=== PATIENT | male | born 1990 | race Caucasian/White ===

== ENCOUNTER 2023-06-10 15:16 | Emergency (ER) | payer BC, SELFPAY ==
--- NOTE | ~2023-06-10 | XR_ITS ---
EXAM: XR lumbar spine 2-3V DATE: 06/10/2023 16:06 HISTORY: mid low back pain after household move 1.5 wks ago . COMPARISON: None available. FINDINGS: 5 nonrib-bearing lumbar-type vertebral bodies. Pedicles intact. Normal vertebral body alig nment. Vertebral body heights preserved. Mild disc space narrowing at L3-4. Normal facets and posteri or elements. No fracture or dislocation. IMPRESSION: No acute fracture or traumatic malalignment detected in the lumbar spine. Reviewed, dictated and finalized at location K.
[2023-06-10 15:19] VITALS: BP 140/98; PULSE 81; RESP 18; TEMP 37.1; O2SAT 99
[2023-06-10] MEDS: LIDOCAINE 5% PATCH 1 PATCH TRANSDERM (16:07)
--- NOTE | 2023-06-10 16:36 | ED.BACK ---
HPI - Back Pain/Injury General Chief Complaint: Back Pain/Injury Stated Complaint: back pain Time Seen by Provider: 06/10/23 15:36 Source: patient and RN notes reviewed Mode of arrival: ambulatory Limitations: no limitations History of Present Illness HPI Narrative: This is a 32 year old male with history of scoliosis who presents for evaluation of low back pain. Patient states 2 days ago he developed low back pain while moving furniture in his apartment. He states his back pain has worsened over the past 2 days. he has taken ibuprofen and tylenol for his pain. He reports pain is worse with movement it is was painful to ride in car. he feels like pain radiates into his hip. He denies leg weakness, numbness tingling or urinary complaint Related Data Allergies Allergy/AdvReac Type Severity Reaction Status Date / Time Iodine and Iodide Containing Allergy Seizure Verified 08/24/19 22:01 Produc ketorolac [From Toradol] Allergy Rash Verified 08/24/19 22:01 Review of Systems Review of Systems: All systems reviewed & are unremarkable except as noted in HPI and below PMFSH Past Medical History Medical History (Updated 06/10/23 @ 17:06 by Fani Hooks MD) No active medical problems Surgical History Surgical History H/O hand surgery Family History Family History Mother Diabetes mellitus Social History Social History Smoking status: Light tobacco smoker Tobacco type: cigarettes Alcohol use details: Says he drinks rarely Substance use type: marijuana Gender identity (if verbalized by the patient): Male Exam Const: General: no acute distress and alert Nutritional Appearance: well nourished Eyes: EOM: EOMs intact bilaterally Resp: Effort & Inspection: normal respiratory effort GI: GI Palp: Yes Soft to palpation (nontender) : General: Yes no CVA tenderness Back/Spine/Pelvis: Back: no CVA tenderness Thoracic/Lumbar Spine: paraspinal muscle tenderness Skin: General skin exam: normal color Rashes: no rashes Wounds: no wounds Neuro: General: patient oriented x3, moves all extremities and CN's II-XI intact bilaterally Extrem: General: normal to inspection Psych: Mental Status: mental status grossly normal Affect: normal affect Attitude: cooperative Course Vital Signs Vital signs: Vital Signs Temperature 98.8 F 06/10/23 15:19 Pulse Rate 81 06/10/23 15:19 Respiratory Rate 18 06/10/23 15:19 Blood Pressure 140/98 H 06/10/23 15:19 Pulse Oximetry 99 06/10/23 15:19 Oxygen Delivery Room Air 06/10/23 15:19 Temperature 98.8 F 06/10/23 15:19 Pulse Rate 81 06/10/23 15:19 Respiratory Rate 18 06/10/23 15:19 Blood Pressure 140/98 H 06/10/23 15:19 Pulse Oximetry 99 06/10/23 15:19 Oxygen Delivery Room Air 06/10/23 15:19 MDM - Back Pain/Injury MDM Narrative Medical decision making narrative: Patient presents with low back pain with lifting furniture. he has not neurological symptoms. no urinary complaints. Patient concerned with fracture . lumbar xray ordered and did not show fracture. I discussed with patient that he will treat with NSaIDS, muscle relaxers and he was given lidocaine patch. Follow up with PCP Differential Diagnosis Differential diagnosis: Likely lumbar radiculopathy, sciatica, strain of lumbar region and other (fracture) Imaging Data Radiologist's impression: ITS Impressions Lumbar Spine X-Ray 06/10/23 16:45 IMPRESSION: No acute fracture or traumatic malalignment detected in the lumbar spine. Discharge Plan Discharge Clinical Impression: Strain of lumbar region Patient Disposition: Home, Self-Care Condition: Stable Instructions: Antibiotic Form, Acute Low Back Pain (ED), Back Pain (ED) Additional Instructions: Con
== END 2023-06-10 17:20 | disposition home or self-care (01) ==
PROVIDERS: Emergency Provider General Practice
DX: S39.012A Strain of muscle, fascia and tendon of lower back, initial encounter (principal); F17.210 Nicotine dependence, cigarettes, uncomplicated; X50.0XXA Overexertion from strenuous movement or load, initial encounter
CPT/HCPCS: 72100; 99283; A9270

== ENCOUNTER 2023-07-22 15:05 | Emergency (ER) | payer BC, SELFPAY ==
--- NOTE | ~2023-07-22 | XR_ITS ---
EXAMINATION: XR chest 1V portable Exam Date/Time: 07/22/2023 15:30 CDT HISTORY: mid-left sided cp, increased HR today w/ chronic cough Comparison: None. RESULT: Lines, tubes, and devices: None. Lungs and pleura: Clear. Cardiomediastinal silhouette: Stable. Other: No acute osseous or upper abdominal finding. IMPRESSION: No acute cardiopulmonary process. Reviewed, dictated and finalized at location K.
[2023-07-22 15:15] VITALS: O2SAT 97
--- NOTE | 2023-07-22 15:15 | ECG_ITS ---
Measurements Intervals [place] Rate: 87 P: 67 ME: 152 QRS: 45 QRSD: 82 T: 55 QT: 335 QTc: 404 Interpretive Statements SINUS RHYTHM NORMAL ELECTROCARDIOGRAM Electronically Signed On 07-24-2023 7:11:01 CDT by Mono Prabhakar M.D.
[2023-07-22 15:20] VITALS: PULSE 88
--- NOTE | 2023-07-22 15:40 | ED.CHESTPAIN ---
HPI - Chest Pain General Chief Complaint: Chest Pain Stated Complaint: chest pain Time Seen by Provider: 07/22/23 15:15 Source: patient Mode of arrival: ambulatory Limitations: no limitations History of Present Illness HPI narrative: 32-year-old male smoker with a history of hypertension, palpitation on metoprolol and hydrochlorothiazide presents to the ER with a 1-1/2 hour history of -- left-sided chest pain which radiates to the entire left chest wall. Patient was resting when the pain hit him. Pain was initially noted to be 5/10. Pain is spontaneously decreased to 1/10. No nausea or vomiting. No shortness of breath. No lightheadedness. MD complaint: chest pain Onset (ago): hour(s) ( Started 1-1/2 hours ago) Timing of current episode: constant Prior episodes: No Onset: during rest Pain location: left chest Pain scale (0-10): 5 Quality: aching Relieving factors: nothing Exacerbating factors: nothing Treatment prior to arrival: none Related Data Home Medications Medication Instructions Recorded Confirmed Unable to Obtain Home Medications 07/22/23 07/22/23 Allergies Allergy/AdvReac Type Severity Reaction Status Date / Time Iodine and Iodide Containing Allergy Seizure Verified 07/22/23 15:18 Produc ketorolac [From Toradol] Allergy Rash Verified 07/22/23 15:18 Review of Systems Review of Systems: All systems reviewed & are unremarkable except as noted in HPI and below Constitutional: Constitutional: Reports as per HPI and Reports no additional constitutional complaints Eyes: Eyes: Reports as per HPI and Reports no additional eye complaints ENT: Reports system reviewed and no additional complaints, except as documented and Reports as per HPI Cardiovascular: Cardiovascular: Reports as per HPI, Reports no additional cardiovascular complaints and Reports chest pain Respiratory: Respiratory: Reports as per HPI and Reports no additional respiratory complaints Gastrointestinal: Gastrointestinal: Reports as per HPI and Reports no additional gastrointestinal complaints Genitourinary: Genitourinary: Reports no additional male genitourinary complaints and Reports as per HPI Musculoskeletal: Musculoskeletal: Reports no additional musculoskeletal complaints and Reports as per HPI Integumentary/Breasts: Skin/Breast: Reports system reviewed and no additional complaints, except as docu and Reports as per HPI Neurologic: Reports system reviewed and no additional complaints, except as documented and Reports as per HPI Psychiatric: Psychiatric: Reports no additional psychiatric complaints, Reports as per HPI and Reports anxiety Endocrine: Endocrine: Reports no additional endocrine complaints and Reports as per HPI Hematologic/Lymphatic: Hematologic/Lymphatic: Reports no additional hematologic/lymphatic complaints and Reports as per HPI Allergic/Immunologic: Allergic/Immunologic: Reports no additional allergic/immunologic complaints and Reports as per HPI [facility] Past Medical History Medical History (Updated 07/22/23 @ 16:32 by Manan Paez MD) No active medical problems Surgical History Surgical History H/O hand surgery Family History Family History Mother Diabetes mellitus Social History Social History Smoking status: Light tobacco smoker Tobacco type: cigarettes Alcohol use details: Says he drinks rarely Substance use type: marijuana Gender identity (if verbalized by the patient): Male Exam Const: General: no acute distress Orientation/consciousness: patient oriented x3 Limitations: no limitations HENMT: Head: normal to inspection Ears: external ears normal Face/Nose/Sinus: Normal external nose present Face and sinus: normal facial exam Mouth: Yes Normal oral and palatal mucosa present Throat: pos
[2023-07-22 15:46] LABS: Basophils Absolute Auto 0.13 K/mm3 (0.00-0.10); Basophils Percent Auto 0.9 % (0.0-1.0); Eosinophils Absolute Auto 0.28 K/mm3 (0.02-0.50); Hematocrit 43.6 % (40.0-54.0); Hemoglobin 14.9 g/dL (14.0-18.0); Immature Granulocyte Absolute 0.07 K/mm3 (0.00-0.00); Immature Granulocyte Percent A 0.5 % (0.0-0.0); Lymphocytes Absolute Auto 3.21 K/mm3 (1.10-4.50); Lymphocytes Percent Auto 22.8 % (18.0-42.0); Mean Corpuscular HGB Conc 34.2 g/dL (32.0-36.0); Mean Corpuscular Hemoglobin 29.6 pg (27.0-31.0); Mean Corpuscular Volume 86.5 fL (78.0-102.0); Mean Platelet Volume 9.6 fl (8.7-11.0); Monocytes Absolute Auto 1.08 K/mm3 (0.10-0.90); Monocytes Percent Auto 7.7 % (2.0-11.0); Neutrophils Absolute Auto 9.3 K/mm3 (1.7-7.2); Neutrophils Percent Auto 66.1 % (50.0-70.0); Platelet Count Result 332 K/mm3 (150-420); Red Blood Count 5.04 M/mm3 (4.70-6.10); Red Cell Distribution Width 12.2 % (11.6-14.4); White Blood Count 14.1 K/mm3 (4.8-10.8)
[2023-07-22 15:57] VITALS: BP 145/98; PULSE 95; RESP 16; TEMP 37.1; O2SAT 99
[2023-07-22 16:03] LABS: Alanine Aminotransferase 44 U/L (16-63); Albumin Level 4.1 g/dL (3.4-5.0); Alkaline Phosphatase 70 U/L (46-116); Anion Gap 11 mmol/L (8-16); Aspartate Amino Transferase 21 U/L (15-37); Bilirubin,Total 0.4 mg/dL (0.00-1.00); Blood Urea Nitrogen 14 mg/dL (7-18); Calcium 9.5 mg/dL (8.5-10.1); Carbon Dioxide 27 mmol/L (21-32); Chloride 102 mmol/L (98-108); Estimated CRCL calculation 84 ml/min; Estimated Glomerular Filt Rate > 60; Glucose 98 mg/dL (70-99); Lactic Acid Reflex 1.2 mmol/L (0.4-2.0); Lipase 24 U/L (16-77); Osmolality Calculated 290 mOsm/kg (285-295); Potassium 3.5 mmol/L (3.5-5.1); Sodium 140 mmol/L (136-145); Total Protein 7.8 g/dL (6.4-8.2); Troponin I 5.2 ng/L (0.00-60.4)
[2023-07-22 16:15] VITALS: PULSE 73
[2023-07-22 16:35] VITALS: BP 118/70; PULSE 69; RESP 16; TEMP 36.8; O2SAT 99
== END 2023-07-22 16:38 | disposition home or self-care (01) ==
PROVIDERS: Emergency Provider Internal Medicine Critical Care Medicine
DX: R07.89 Other chest pain (principal); F41.9 Anxiety disorder, unspecified; I10 Essential (primary) hypertension; F17.210 Nicotine dependence, cigarettes, uncomplicated
CPT/HCPCS: 36415; 71045; 80053; 83605; 83690; 84484; 85025; 93005; 99284

== ENCOUNTER 2023-09-10 20:14 | Emergency (ER) | payer OTHER, SELFPAY ==
[2023-09-10] VITALS (17 sets, daily range): BP systolic 128–155; BP diastolic 90–118; PULSE 62–91; RESP 16–24; TEMP 36.8; O2SAT 95–100
--- NOTE | ~2023-09-10 | XR_ITS ---
EXAMINATION: XR chest 1V Exam Date/Time: 09/10/2023 20:35 PROJECT MANAGER/TEAM COACH HISTORY: MS. RIGHT SIDE WEAKNESS. Comparison: 07/22/2023. RESULT: Lines, tubes, and devices: None. Lungs and pleura: Clear. Cardiomediastinal silhouette: Stable. Other: No acute osseous or upper abdominal finding. IMPRESSION: No acute cardiopulmonary process. Reviewed, dictated and finalized at location K. ECT MANAGER/TEAM COACH
--- NOTE | ~2023-09-10 | CT_ITS ---
EXAMINATION: CTA brain carotid DATE: 09/10/2023 21:59 INDICATION: stroke r/o. RIGHT SIDE WEAKNESS. TECHNIQUE: Computed tomographic angiography (CTA) of the head and neck was performed with 100 mL Omni paque-350 intravenous contrast. Automated exposure control and iterative reconstruction technique wer e employed. The dose-length product was 1256.03 mGy-cm. Maximum intensity projection and volume rende red 3D-reconstructions were created by the technologist on a separate workstation. COMPARISON: CT brain, same date. FINDINGS: CTA HEAD: No large vessel occlusion, aneurysm, high flow vascular malformation, nidus or extravasation. Symmetr ic parenchymal enhancement. Patent cerebral veins. CTA NECK: Aortic arch and proximal great vessels: Normal arch anatomy. Right common carotid, carotid bifurcation, and internal carotid artery: No plaque.There is 0 % stenos is of the proximal right internal carotid artery relative to normal distal artery lumen diameter (LYLA CET criteria). Left common carotid, carotid bifurcation, and internal carotid artery: No plaque.There is 0% stenosis of the proximal left internal carotid artery relative to normal distal artery lumen diameter (NASCET criteria). Vertebral arteries: No significant plaque or stenosis. Left vertebral artery is dominant. Other findings: None. IMPRESSION: No large vessel occlusion. No significant carotid or vertebral artery stenosis. Reviewed, dictated and finalized at location K. LATE CUTTER
--- NOTE | ~2023-09-10 | CT_ITS ---
EXAMINATION: CT brain wo con DATE: 09/10/2023 20:41 INDICATION: MS, RIGHT SIDE WEAKNESS X 30 MINS. . TECHNIQUE: Computed tomography (CT) of the head was performed without intravenous contrast. The mA wa s adjusted according to patient size. Iterative reconstruction technique was employed. The dose-lengt h product was 605.33 mGy-cm. COMPARISON: 10/09/2007, images only. FINDINGS: No acute intracranial hemorrhage or extra-axial fluid collection. No hydrocephalus, mass, or herniation. No acute ischemic infarct. Unremarkable dural venous sinus attenuation. No acute osseous abnormality. Small retention cyst or polyp in the left maxillary sinus, mucosal thickening in the left frontal and anterior ethmoid air cells, the remaining aerated spaces are clear. IMPRESSION: No acute intracranial process. Reviewed, dictated and finalized at location K. WELL PERFORATOR OPERATOR
--- NOTE | 2023-09-10 20:25 | ECG_ITS ---
Measurements Intervals [place] Rate: 74 P: 66 ID: [id number] QRS: 61 QRSD: 85 T: 57 QT: 328 QTc: 364 Interpretive Statements SINUS RHYTHM NORMAL ECG COMPARED TO ECG 07/22/2023 15:32:29 NO SIGNIFICANT CHANGES Electronically Signed On 09-11-2023 12:52:41 GAGE MAKER by David Baltazar M.D.
--- NOTE | 2023-09-10 20:30 | ED.WEAKNESS ---
HPI - Weakness General Chief complaint: Weakness Stated complaint: r sided weakness x 20 minutes Time Seen by Provider: 09/10/23 20:24 Source: patient Mode of arrival: other (father drove) Limitations: other (slow speech) History of Present Illness HPI Narrative: Patient is a 33-year-old male with a significant past medical history MS. He was recently diagnosed with MS in August 03 and . He states that he had stroke-like symptoms at this time and they did an MRI of the brain that did show lesions consistent with MS. He is currently just taking metoprolol and hydrochlorothiazide for blood pressure control. He states he has not had any flare-ups the mass since he was 1st diagnosed with. When he was diagnosed with you had the same symptoms of right-sided weakness and speech problems. He says this is about the same as when he 1st was diagnosed same symptoms. Since he was treated however from the 1st diagnosis he has not had much symptoms except for mild right-sided weakness. Today presents with a slow speech and what he says is increased right-sided weakness that is not his norm. However once again he does state this is similar to the 1st time he was diagnosed with MS. Is consistent with an MS flareup. Patient also states that he had an EKG done at home he has some sort of EKG reading device that showed he had AFib. I looked over this burnout from that and it does not look like AFib it looks like a sinus arrhythmia. Complaint: focal weakness (right sided ) Onset (ago): minute(s) Duration: constant Location: RUE and RLE Severity: mild Quality: tingling, numbness and other (weakness) Relieving factors: none Exacerbating factors: none Context: other (recent dx of MS) Associated symptoms: denies other symptoms Related Data Home Medications Medication Instructions Recorded Confirmed hydrochlorothiazide 12.5 mg tablet 12.5 mg PO DAILY 09/10/23 09/10/23 metoprolol succinate 25 mg 25 mg PO DAILY 09/10/23 09/10/23 tablet,extended release 24 hr Allergies Allergy/AdvReac Type Severity Reaction Status Date / Time Iodine and Iodide Containing Allergy Seizure Verified 09/10/23 20:55 Produc ketorolac [From Toradol] Allergy Rash Verified 09/10/23 20:55 iohexol AdvReac Abdominal Verified 09/10/23 21:32 [From contrast - CT, X-RAY] Pain Review of Systems Review of Systems: All systems reviewed & are unremarkable except as noted in HPI and below Constitutional: Constitutional: Reports as per HPI and Reports weakness Eyes: Eyes: Reports no additional eye complaints ENT: Reports system reviewed and no additional complaints, except as documented Cardiovascular: Comments: arrhythmia Respiratory: Respiratory: Reports no additional respiratory complaints Gastrointestinal: Gastrointestinal: Reports no additional gastrointestinal complaints Genitourinary: Genitourinary: Reports no additional male genitourinary complaints Musculoskeletal: Musculoskeletal: Reports no additional musculoskeletal complaints Integumentary/Breasts: Skin/Breast: Reports system reviewed and no additional complaints, except as docu Neurologic: Reports as per HPI and Reports weakness Psychiatric: Psychiatric: Reports as per HPI Endocrine: Endocrine: Reports no additional endocrine complaints Hematologic/Lymphatic: Hematologic/Lymphatic: Reports no additional hematologic/lymphatic complaints [facility] Past Medical History Medical History (Updated 09/10/23 @ 23:43 by Mark Gomez MD) No active medical problems Surgical History Surgical History H/O hand surgery Family History Family History Mother Diabetes mellitus Social History Social History Smoking status: Light tobacco smoker Tobacco type: cigarettes Alcohol use details: Says he drinks rarely [place]
[2023-09-10 20:37] LABS: Basophils Absolute Auto 0.12 K/mm3 (0.00-0.10); Eosinophils Absolute Auto 0.27 K/mm3 (0.02-0.50); Eosinophils Percent Auto 2.3 % (1.0-6.0); Hematocrit 43.5 % (40.0-54.0); Hemoglobin 14.5 g/dL (14.0-18.0); Immature Granulocyte Absolute 0.06 K/mm3 (0.00-0.00); Immature Granulocyte Percent A 0.5 % (0.0-0.0); Lymphocytes Absolute Auto 4.24 K/mm3 (1.10-4.50); Lymphocytes Percent Auto 36.4 % (18.0-42.0); Mean Corpuscular HGB Conc 33.3 g/dL (32.0-36.0); Mean Corpuscular Hemoglobin 29.4 pg (27.0-31.0); Mean Corpuscular Volume 88.2 fL (78.0-102.0); Mean Platelet Volume 9.7 fl (8.7-11.0); Monocytes Absolute Auto 0.95 K/mm3 (0.10-0.90); Monocytes Percent Auto 8.2 % (2.0-11.0); Neutrophils Percent Auto 51.6 % (50.0-70.0); Platelet Count Result 329 K/mm3 (150-420); Red Blood Count 4.93 M/mm3 (4.70-6.10); Red Cell Distribution Width 12.7 % (11.6-14.4); White Blood Count 11.6 K/mm3 (4.8-10.8)
[2023-09-10 20:46] LABS: Partial Thromboplastin Time 26.8 SEC (23.90-30.70); Prothrombin Time 10.8 Seconds (9.50-12.10)
[2023-09-10 20:51] LABS: Alanine Aminotransferase 39 U/L (16-63); Alkaline Phosphatase 56 U/L (46-116); Anion Gap 4 mmol/L (8-16); Aspartate Amino Transferase 23 U/L (15-37); Bilirubin,Total 0.2 mg/dL (0.00-1.00); Blood Urea Nitrogen 14 mg/dL (7-18); Calcium 9.4 mg/dL (8.5-10.1); Carbon Dioxide 33 mmol/L (21-32); Chloride 101 mmol/L (98-108); Estimated Glomerular Filt Rate > 60; Glucose 98 mg/dL (70-99); Osmolality Calculated 286 mOsm/kg (285-295); Potassium 3.8 mmol/L (3.5-5.1); Sodium 138 mmol/L (136-145); Total Protein 7.8 g/dL (6.4-8.2); Troponin I 4.4 ng/L (0.00-60.4)
[2023-09-10] MEDS: methylPREDNISolone SOD SUCC 125 MG VIAL IV PUSH (20:52)
[2023-09-10] MEDS: diphenhydrAMINE HCl INJ 50 MG/ML VIAL IV PUSH (21:29)
[2023-09-10] MEDS: SODIUM CHLORIDE 0.9% IV 1,000 ML 999 ML IV CONT (21:29)
[2023-09-10] MEDS: ONDANSETRON INJ 4 MG/2 ML VIAL IV PUSH (21:29)
[2023-09-10 22:19] LABS: Appearance Urine Clear (Clear); Bilirubin Urine Negative (Negative); Blood Urine Negative (Negative); Color Urine Light Yellow (Yellow); Glucose Urine UA Negative (Negative); Ketones Urine Negative (Negative); Leukocyte Esterase Ur Negative LEU/UL (Negative); Nitrate Urine Negative (Negative); Protein Urine Negative (Negative); Urobilinogen Urine 0.2 mg/dL (0.2-1.0); pH Urine 6.5 (5.0-8.0)
[2023-09-10 22:22] LABS: Add Urine Microscopic? NO
[2023-09-10 22:26] LABS: Amphetamine Screen Urine Negative (Negative); Barbiturate Screen Urine Negative (Negative); Benzodiazepines Screen Urine Negative (Negative); Cannabinoid Screen Urine Positive (Negative); Cocaine Screen Urine Negative (Negative); Methadone Screen Urine Negative (Negative); Opiate Screen Urine Negative (Negative); Phencyclidine Screen Urine Negative (Negative)
== END 2023-09-10 23:35 | disposition short-term general hospital (02) ==
PROVIDERS: Emergency Provider Family Medicine; PCP Family Medicine
DX: G35 Multiple sclerosis (principal); G45.9 Transient cerebral ischemic attack, unspecified; Z79.899 Other long term (current) drug therapy; F17.210 Nicotine dependence, cigarettes, uncomplicated
CPT/HCPCS: 36415; 70450; 70496; 70498; 71045; 80053; 80307; 81003; 84484; 85025; 85610; 85730; 93005; 96361; 96374; 96375; 99285; J1200; J2405; J2930; J7030; Q9967

== ENCOUNTER 2023-10-13 15:27 | Outpatient (CLI) | payer OTHER, SELFPAY ==
--- NOTE | ~2023-10-13 | XR_ITS ---
XR chest 2V DATE: 10/13/2023 16:02 INDICATION: Left chest pain for one year. Chronic cough. Smoker. TECHNIQUE: PA and lateral views COMPARISON: 09/10/2023 PA chest FINDINGS: Normal heart size. No hilar or mediastinal enlargement. No pulmonary infiltrate or consolid ation, pleural effusion or pulmonary vascular congestion or pneumothorax. Included skeletal structure s are unremarkable other than mild thoracolumbar dextroscoliosis. IMPRESSION: No active cardiopulmonary disease Reviewed, dictated and finalized at location B. TY COUNTY CLERK
--- NOTE | ~2023-10-13 | XR_ITS ---
XR abdomen obstructive series DATE: 10/13/2023 16:02 INDICATION: Left lower quadrant and left flank pain. Decreased urination for 3 weeks. TECHNIQUE: Supine and upright AP views COMPARISON: 09/15/2012 obstructive series 08/27/2007 CT renal scan FINDINGS: The lung bases are clear. No pleural effusion or pneumoperitoneum is evident. The psoas sha dows are intact. No visceromegaly is detected. Several small calcifications overlie the right upper quadrant, of uncertain if any significance; thes e may be costal cartilage calcifications versus calcified gallstones or less likely right renal or he patic calcification. There is a prominent amount of fecal material in the colon but no evidence of bowel obstruction. Bilateral calcified pelvic phleboliths. Included skeletal structures are unremarkable. IMPRESSION: Nonspecific calcifications overlie right upper quadrant; CT abdomen examination would be helpful to more definitively evaluate these, if clinically appropriate. Prominent amount of fecal material in the colon; no bowel obstruction or free air Reviewed, dictated and finalized at Location A. Reviewed, dictated and finalized at location B. S TRAINING COORDINATOR IMPRESSION: Nonspecific calcifications overlie right upper quadrant; CT abdomen examination would be helpful to more definitively evaluate these, if clinicall y appropriate. Prominent amount of fecal material in the colon; no bowel obstruction or free a ir
[2023-10-13 15:42] LABS: Basophils Percent Auto 0.8 % (0.0-1.0); Eosinophils Absolute Auto 0.29 K/mm3 (0.02-0.50); Eosinophils Percent Auto 2.3 % (1.0-6.0); Hemoglobin 15.8 g/dL (14.0-18.0); Immature Granulocyte Absolute 0.07 K/mm3 (0.00-0.00); Immature Granulocyte Percent A 0.6 % (0.0-0.0); Lymphocytes Absolute Auto 3.19 K/mm3 (1.10-4.50); Lymphocytes Percent Auto 25.7 % (18.0-42.0); Mean Corpuscular HGB Conc 34.3 g/dL (32.0-36.0); Mean Corpuscular Hemoglobin 30.1 pg (27.0-31.0); Mean Corpuscular Volume 87.6 fL (78.0-102.0); Mean Platelet Volume 9.3 fl (8.7-11.0); Monocytes Absolute Auto 1.13 K/mm3 (0.10-0.90); Monocytes Percent Auto 9.1 % (2.0-11.0); Neutrophils Absolute Auto 7.6 K/mm3 (1.7-7.2); Neutrophils Percent Auto 61.5 % (50.0-70.0); Platelet Count Result 345 K/mm3 (150-420); Red Blood Count 5.25 M/mm3 (4.70-6.10); Red Cell Distribution Width 12.5 % (11.6-14.4); White Blood Count 12.4 K/mm3 (4.8-10.8)
[2023-10-13 16:29] LABS: Anion Gap 10 mmol/L (8-16); Blood Urea Nitrogen 15 mg/dL (7-18); Calcium 9.2 mg/dL (8.5-10.1); Carbon Dioxide 29 mmol/L (21-32); Chloride 100 mmol/L (98-108); Estimated Glomerular Filt Rate > 60; Glucose 88 mg/dL (70-99); Osmolality Calculated 287 mOsm/kg (285-295); Potassium 4.3 mmol/L (3.5-5.1); Sodium 139 mmol/L (136-145)
== END 2023-10-13 15:28 | disposition home or self-care (01) ==
LOC: CHSLAB 15:29
PROVIDERS: PCP Family Medicine; Visit Provider Family Medicine
DX: I10 Essential (primary) hypertension (principal); R10.32 Left lower quadrant pain; R07.9 Chest pain, unspecified
CPT/HCPCS: 36415; 71046; 74019; 80048; 85025

== ENCOUNTER 2023-10-27 09:12 | Outpatient (CLI) | payer OTHER, SELFPAY ==
--- NOTE | ~2023-10-27 | CT_ITS ---
Non-contrast CT scan of the Abdomen and Pelvis Clinical indication: Right upper quadrant mass Technique: 2.5 mm axial scans were obtained through the abdomen and pelvis without intravenous or or al contrast. Dose reduction technique was used on this scan by utilizing automated exposure control a nd iterative reconstruction technique. The dose-length product (DLP) was 194.66 mGy-cm. Findings: Images through the lung bases reveal no abnormalities. 3 mm nonobstructing left renal stone noted. No ureteral stones seen on either side. No hydronephrosis is evident. The liver, spleen, pancreas, gallbladder, and adrenals appear normal. There is no aortic aneurysm. There is no evidence of bowel obstruction. Normal appendix. Images through the pelvis were performed. There is no evidence of ascites or lymphadenopathy. Urinary bladder unremarkable. No pelvic mass seen. No ascites. Bilateral L5 pars interarticularis defects ar e present, without subluxation. Impression: 3 mm nonobstructing left renal stone. Bilateral L5 pars interarticularis defect. Reviewed, dictated and finalized at [facility]. TH EDUCATION AIDE Impression: 3 mm nonobstructing left renal stone. Bilateral L5 pars interarticularis defect.
== END 2023-10-27 09:13 | disposition home or self-care (01) ==
LOC: CHSIMG 09:13
PROVIDERS: PCP Family Medicine; Visit Provider Family Medicine
DX: R19.01 Right upper quadrant abdominal swelling, mass and lump (principal); N20.0 Calculus of kidney; M53.86 Other specified dorsopathies, lumbar region
CPT/HCPCS: 74176

== ENCOUNTER 2023-10-30 09:23 | Outpatient (CLI) | payer OTHER, SELFPAY | END 2023-10-30 09:24 | disposition home or self-care (01) | LOC: CHSCARD 09:25 | PROVIDERS: PCP Family Medicine; Visit Provider Family Medicine | DX: R07.9 Chest pain, unspecified (principal) | CPT/HCPCS: 99199 ==

== ENCOUNTER 2023-12-01 19:51 | Emergency (ER) | payer OTHER, SELFPAY ==
--- NOTE | ~2023-12-01 | CT_ITS ---
EXAMINATION: CT abdomen pelvis wo con DATE: 12/01/2023 21:14 INDICATION: Abdominal pain TECHNIQUE: Computed tomography (CT) of the abdomen and pelvis was performed without intravenous contr ast. The dose-length product (DLP) was 402.64 mGy-cm. Automated exposure control and iterative recons truction technique were employed. COMPARISON: 10/27/2023 FINDINGS: The lung bases are clear. The heart size is normal. The liver, spleen, pancreas, gallbladde r, and adrenal glands are normal. The right kidney is unremarkable. There is a [address] one of the left kidney. No pathologically enlarged abdominal or pelvic lymph nodes are identified. No free intraperitoneal gas or evidence of bowel obstruction. Colonic diverticulosis is present without evidence of diverticulitis. Bilateral L5 pars defects are again noted. IMPRESSION: 1. No CT correlate for the patient's symptoms. 2. Nonobstructing left nephrolithiasis. Reviewed, dictated and finalized at location F. RER POULTRY HATCHERY
--- NOTE | ~2023-12-01 | XR_ITS ---
EXAMINATION: XR abdomen/kub 1V INDICATION: Nausea vomiting and diarrhea TECHNIQUE: Supine views of the abdomen were obtained on 2 radiographs. COMPARISON: 10/13/2021 FINDINGS: The bowel gas pattern is normal. There are no dilated loops of bowel. The visualized lung b ases are clear. There are phleboliths of the pelvis. IMPRESSION: 1. No radiographic correlate for the patient's symptoms. Reviewed, dictated and finalized at location F. S MANAGER
[2023-12-01 19:53] VITALS: BP 141/103; PULSE 75; RESP 18; TEMP 37; O2SAT 100
--- NOTE | 2023-12-01 20:00 | ED.NAVMDI ---
HPI - Nausea/Vomiting/Diarrhea General Chief complaint: Nausea/Vomiting/Diarrhea Stated complaint: sick Time Seen by Provider: 12/01/23 19:55 Source: patient Mode of arrival: ambulatory Limitations: no limitations History of Present Illness HPI Narrative: patient is a 33-year-old male with nausea vomiting and diarrhea for 2 weeks. He does not particularly have abdominal pain but he has some bloating. He also has a lymph node under his left armpit. He has been on amoxicillin as well for some dental changes. MD elicited complaint: nausea, vomiting and diarrhea Onset (ago): week(s) (2) Description of vomiting: watery Description of diarrhea: watery and lose Associated nausea: Yes Associated abdominal pain: No Location of pain: none Severity: mild Quality: cramping Exacerbating factors: none Relieving factors: none Associated symptoms: nausea/vomiting and bloating Related Data Home Medications Medication Instructions Recorded Confirmed hydrochlorothiazide 12.5 mg tablet 12.5 mg PO DAILY 09/10/23 09/10/23 metoprolol succinate 25 mg 25 mg PO DAILY 09/10/23 09/10/23 tablet,extended release 24 hr Allergies Allergy/AdvReac Type Severity Reaction Status Date / Time Iodine and Iodide Containing Allergy Seizure Verified 12/01/23 19:57 Produc ketorolac [From Toradol] Allergy Rash Verified 12/01/23 19:57 iohexol AdvReac Abdominal Verified 12/01/23 19:57 [From contrast - CT, X-RAY] Pain Review of Systems Review of Systems: All systems reviewed & are unremarkable except as noted in HPI and below Constitutional: Constitutional: Reports no additional constitutional complaints Eyes: Eyes: Reports no additional eye complaints ENT: Reports system reviewed and no additional complaints, except as documented Cardiovascular: Cardiovascular: Reports no additional cardiovascular complaints Respiratory: Respiratory: Reports no additional respiratory complaints Gastrointestinal: Gastrointestinal: Reports no additional gastrointestinal complaints Genitourinary: Genitourinary: Reports no additional male genitourinary complaints Musculoskeletal: Musculoskeletal: Reports no additional musculoskeletal complaints Integumentary/Breasts: Skin/Breast: Reports system reviewed and no additional complaints, except as docu Neurologic: Reports system reviewed and no additional complaints, except as documented Psychiatric: Psychiatric: Reports no additional psychiatric complaints Endocrine: Endocrine: Reports no additional endocrine complaints Hematologic/Lymphatic: Hematologic/Lymphatic: Reports no additional hematologic/lymphatic complaints Allergic/Immunologic: Allergic/Immunologic: Reports no additional allergic/immunologic complaints PMF Past Medical History Medical History (Updated 12/01/23 @ 21:43 by Raymond Montalvo MD) No active medical problems Surgical History Surgical History H/O hand surgery Family History Family History Mother Diabetes mellitus Social History Social History Smoking status: Light tobacco smoker Tobacco type: cigarettes Alcohol use details: Says he drinks rarely Substance use type: marijuana Gender identity (if verbalized by the patient): Male Exam Const: General: healthy appearing Nutritional Appearance: well nourished Orientation/consciousness: patient oriented x3 HENMT: Head: normal to inspection Ears: external ears normal Face/Nose/Sinus: Normal external nose present Eyes: Conjunctivae: conjunctivae normal Cornea: corneas normal Pupils: Equal, round and reactive pupils present Neck: Neck: normal visual inspection Chest: Chest palpation & inspection: normal inspection of the chest Resp: Effort & Inspection: normal respiratory effort and not labored Auscultation: clear to auscultation b
[2023-12-01 20:07] LABS: Hematocrit 44.1 % (40.0-54.0); Hemoglobin 14.9 g/dL (14.0-18.0); Immature Granulocyte Absolute 0.04 K/mm3 (0.00-0.00); Immature Granulocyte Percent A 0.4 % (0.0-0.0); Lymphocytes Percent Auto 35.6 % (18.0-42.0); Mean Corpuscular HGB Conc 33.8 g/dL (32.0-36.0); Mean Corpuscular Hemoglobin 29.2 pg (27.0-31.0); Mean Corpuscular Volume 86.5 fL (78.0-102.0); Mean Platelet Volume 9.3 fl (8.7-11.0); Monocytes Absolute Auto 0.98 K/mm3 (0.10-0.90); Monocytes Percent Auto 9.7 % (2.0-11.0); Neutrophils Percent Auto 49.3 % (50.0-70.0); Platelet Count Result 325 K/mm3 (150-420); Red Cell Distribution Width 12.1 % (11.6-14.4); White Blood Count 10.1 K/mm3 (4.8-10.8)
[2023-12-01 20:23] LABS: Alanine Aminotransferase 43 U/L (16-63); Alkaline Phosphatase 58 U/L (46-116); Anion Gap 7 mmol/L (8-16); Aspartate Amino Transferase 26 U/L (15-37); Bilirubin,Total 0.2 mg/dL (0.00-1.00); Blood Urea Nitrogen 15 mg/dL (7-18); Calcium 8.9 mg/dL (8.5-10.1); Carbon Dioxide 31 mmol/L (21-32); Chloride 101 mmol/L (98-108); Estimated CRCL calculation 80 ml/min; Estimated Glomerular Filt Rate > 60; Glucose 100 mg/dL (70-99); Osmolality Calculated 288 mOsm/kg (285-295); Potassium 3.4 mmol/L (3.5-5.1); Sodium 139 mmol/L (136-145); Total Protein 7.5 g/dL (6.4-8.2)
[2023-12-01] MEDS: POTASSIUM CHLORIDE 20 MEQ ER TABLET PO (20:34)
[2023-12-01] MEDS: ONDANSETRON HCL ODT 4 MG TABLET PO (20:34)
[2023-12-01 20:43] LABS: SARS-CoV-2 RNA PCR Negative (Negative)
[2023-12-01 20:44] LABS: Influenza A QL RT-PCR Negative (Negative); Influenza B QL RT-PCR Negative (Negative); RSV RNA, RT-PCR Negative (Negative)
[2023-12-01 21:40] VITALS: BP 132/93; PULSE 62; RESP 18; O2SAT 99
[2023-12-01] MEDS: AZITHROMYCIN 250 MG TABLET 500 MG PO (22:06)
== END 2023-12-01 22:08 | disposition home or self-care (01) ==
PROVIDERS: Emergency Provider Emergency Medicine; PCP Family Medicine
DX: A28.1 Cat-scratch disease (principal); K52.9 Noninfective gastroenteritis and colitis, unspecified; F17.210 Nicotine dependence, cigarettes, uncomplicated; Z20.822 Contact with and (suspected) exposure to COVID-19
CPT/HCPCS: 36415; 74018; 74176; 80053; 85025; 87637; 99284; A9270

== ENCOUNTER 2023-12-21 21:14 | Emergency (ER) | payer OTHER, SELFPAY ==
[2023-12-21 21:17] VITALS: BP 148/113; PULSE 80; RESP 18; O2SAT 100
[2023-12-21 21:30] VITALS: BP 142/108; TEMP 37.4
[2023-12-21 21:57] LABS: Basophils Absolute Auto 0.11 K/mm3 (0.00-0.10); Basophils Percent Auto 0.9 % (0.0-1.0); Eosinophils Absolute Auto 0.31 K/mm3 (0.02-0.50); Eosinophils Percent Auto 2.6 % (1.0-6.0); Hemoglobin 15.2 g/dL (14.0-18.0); Immature Granulocyte Absolute 0.05 K/mm3 (0.00-0.00); Immature Granulocyte Percent A 0.4 % (0.0-0.0); Lymphocytes Absolute Auto 2.62 K/mm3 (1.10-4.50); Lymphocytes Percent Auto 21.7 % (18.0-42.0); Mean Corpuscular HGB Conc 34.5 g/dL (32-36); Mean Corpuscular Hemoglobin 29.2 pg (27.0-31.0); Mean Corpuscular Volume 84.6 fL (78.0-102.0); Mean Platelet Volume 9.1 fl (8.7-11.0); Monocytes Absolute Auto 0.86 K/mm3 (0.10-0.90); Monocytes Percent Auto 7.1 % (2.0-11.0); Neutrophils Absolute Auto 8.15 K/mm3 (1.70-7.20); Neutrophils Percent Auto 67.3 % (50.0-70.0); Platelet Count Result 302 K/mm3 (150-420); Red Cell Distribution Width 11.9 % (11.6-14.4); White Blood Count 12.1 K/mm3 (4.8-10.8)
--- NOTE | 2023-12-21 22:05 | ED.DENTAL ---
HPI - Dental/Oral General Chief complaint: Dental/Oral Stated complaint: dental pain Time Seen by Provider: 12/21/23 21:31 Source: patient and family Mode of arrival: ambulatory Limitations: no limitations History of Present Illness HPI Narrative: Patient had a tooth extraction by his dentist earlier today and subsequently that has been having some intermittent bleeding from the tooth extraction site causing discomfort and anxiety which has been affecting his blood pressure. Otherwise no fever chills no shortness of breath no nausea vomiting. MD Complaint: tooth pain Onset (ago): hour(s) Duration: intermittent Severity: mild Related Data Home Medications Medication Instructions Recorded Confirmed hydrochlorothiazide 12.5 mg tablet 12.5 mg PO DAILY 09/10/23 09/10/23 metoprolol succinate 25 mg 25 mg PO DAILY 09/10/23 09/10/23 tablet,extended release 24 hr Allergies Allergy/AdvReac Type Severity Reaction Status Date / Time Iodine and Iodide Containing Allergy Seizure Verified 12/21/23 21:31 Produc ketorolac [From Toradol] Allergy Rash Verified 12/21/23 21:31 iohexol AdvReac Abdominal Verified 12/21/23 21:31 [From contrast - CT, X-RAY] Pain Review of Systems Review of Systems: All systems reviewed & are unremarkable except as noted in HPI and below PMFSH Past Medical History Medical History (Updated 12/21/23 @ 22:09 by Mono Reddy MD) No active medical problems Surgical History Surgical History H/O hand surgery Family History Family History Mother Diabetes mellitus Social History Social History Smoking status: Light tobacco smoker Tobacco type: cigarettes Alcohol use details: Says he drinks rarely Substance use type: marijuana Gender identity (if verbalized by the patient): Male Exam Const: General: healthy appearing, no acute distress and alert Nutritional Appearance: well nourished Orientation/consciousness: patient oriented x3 Limitations: no limitations HENMT: Head: normal to inspection Other: Left lower molar tooth extraction currently after assessment is not bleeding Eyes: Conjunctivae: conjunctivae normal Neck: Neck: normal visual inspection and no lymphadenopathy Chest: Chest palpation & inspection: normal inspection of the chest Resp: Effort & Inspection: normal respiratory effort Auscultation: clear to auscultation bilaterally Cardio: Rate: regular rate Rhythm: regular rhythm Course Course Emergency Course: patient after reassessment there was no bleeding from the tooth extraction site labs reviewed and his blood counts were within normal range, blood pressure stable 142/108 advised to follow-up his primary and can take Tylenol extra-strength for pain and discomfort. Vital Signs Vital signs: Vital Signs Pulse Rate 80 12/21/23 21:17 Respiratory Rate 18 12/21/23 21:17 Blood Pressure 148/113 H 12/21/23 21:17 Pulse Oximetry 100 12/21/23 21:17 Oxygen Delivery Room Air 12/21/23 21:17 Temperature 37.4 C 12/21/23 21:30 Pulse Rate 80 12/21/23 21:17 Respiratory Rate 18 12/21/23 21:17 Blood Pressure 142/108 H 12/21/23 21:30 Pulse Oximetry 100 12/21/23 21:17 Oxygen Delivery Room Air 12/21/23 21:17 MDM - Dental/Oral Lab Data 12/21/23 21:54 Labs: Lab Results 12/21/23 Range/Units 21:54 WBC 12.1 H (4.8-10.8) K/mm3 RBC 5.20 (4.70-6.10) M/mm3 Hgb 15.2 (14.0-18.0) g/dL Hct 44.0 (40.0-54.0) % MCV 84.6 (78.0-102.0) fL MCH 29.2 (27.0-31.0) pg MCHC 34.5 (32-36) g/dL RDW 11.9 (11.6-14.4) % Plt Count 302 (150-420) K/mm3 MPV 9.1 (8.7-11.0) fl Immature Gran % (Auto) 0.4 H (0.0-0.0) % Neut % (Auto) 67.3 (50.0-70.0) % Lymph % (Auto) 21.7 (18.0-42.0) % [place] % (Auto) 7.1 (2
[2023-12-21] MEDS: ACETAMINOPHEN 500 MG TABLET 1000 MG PO (22:24)
[2023-12-21 22:29] VITALS: BP 146/102; PULSE 76; RESP 18; O2SAT 98
== END 2023-12-21 22:30 | disposition home or self-care (01) ==
PROVIDERS: Emergency Provider Emergency Medicine; PCP Family Medicine
DX: K08.89 Other specified disorders of teeth and supporting structures (principal)
CPT/HCPCS: 36415; 85025; 99283

== ENCOUNTER 2024-01-29 14:17 | Outpatient (CLI) | payer OTHER, SELFPAY ==
--- NOTE | ~2024-01-29 | US_ITS ---
US scrotum doppler INDICATION: Palpable testicular lump TECHNIQUE: Testicular sonogram utilizing grayscale and color Doppler FINDINGS: The testes are normal in size and appearance. No focal lesions are seen. The right testes measures 4.8 x 2.8 x 2.4 cm centimeters, and the left testis measures 4.7 x 3.1 x 2 cm cm. There is n ormal vascular flow to both testes. The right and left epididymides appear normal. There is a right varicocele. IMPRESSION: 1. Right varicocele. Reviewed, dictated and finalized at location B. IMPRESSION: 1. Right varicocele.
[2024-02-05 16:38] LABS: Reference Lab Test Name STRATIFY JCV AB
== END 2024-01-29 14:18 | disposition home or self-care (01) ==
PROVIDERS: PCP Family Medicine; Visit Provider Family Medicine
DX: N50.89 Other specified disorders of the male genital organs (principal); I86.1 Scrotal varices
CPT/HCPCS: 36415; 76870; 86711; 93976

== ENCOUNTER 2024-01-30 14:33 | Outpatient (CLI) | payer OTHER, SELFPAY | END 2024-01-30 14:34 | disposition home or self-care (01) | LOC: CHSCARD 14:35 | PROVIDERS: PCP Family Medicine; Visit Provider Family Medicine | DX: J45.20 Mild intermittent asthma, uncomplicated (principal) | CPT/HCPCS: 94060; 94726; 94729 ==

== ENCOUNTER 2024-03-26 09:46 | Emergency (ER) | payer OTHER, SELFPAY ==
[2024-03-26 09:48] VITALS: BP 148/90; PULSE 90; RESP 20; TEMP 36.7; O2SAT 97
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
--- NOTE | 2024-03-26 10:49 | PC.NURSE ---
UPON DC, PT IS REQUESTING FIRST DOSE OF MEDICATIONS PRIOR TO DC, HE RECEIVED A MESSAGE FROM HIS PHARMACY THAT THERE IS AN ISSUE WITH THE INSURANCE. ERP IS NOTIFIED, IS TO TRANSPORT.
[2024-03-26] MEDS: traMADol HCL (*CRX) 50 MG TABLET PO (10:53)
[2024-03-26] MEDS: CYCLOBENZAPRINE HCL 10 MG TABLET PO (10:54)
[2024-03-26 10:57] VITALS: BP 132/78; PULSE 88; RESP 18; O2SAT 99
== END 2024-03-26 10:57 | disposition home or self-care (01) ==
LOC: CHSED 10:38
PROVIDERS: Emergency Provider Emergency Medicine; PCP Family Medicine
DX: S39.012A Strain of muscle, fascia and tendon of lower back, initial encounter (principal); S56.911A Strain of unspecified muscles, fascia and tendons at forearm level, right arm, initial encounter; S76.911A Strain of unspecified muscles, fascia and tendons at thigh level, right thigh, initial encounter; F17.200 Nicotine dependence, unspecified, uncomplicated; Z79.899 Other long term (current) drug therapy; V59.40XA Driver of pick-up truck or van injured in collision with unspecified motor vehicles in traffic accident, initial encounter
CPT/HCPCS: 99283; A9270

== ENCOUNTER 2024-05-31 11:19 | Outpatient (CLI) | payer OTHER, SELFPAY ==
--- NOTE | ~2024-05-31 | XR_ITS ---
Clinical Indication: Chest pain PA and lateral views of the chest: Comparison: 10/13/2023 Findings: The lungs are clear, without evidence of focal consolidation or pleural effusion. Cardiome diastinal silhouette is within normal limits. Bones and soft tissues are unremarkable. Impression: Normal chest. Reviewed, dictated and finalized at location . Impression: Normal chest.
[2024-05-31 11:34] LABS: Basophils Absolute Auto 0.08 K/mm3 (0.00-0.10); Basophils Percent Auto 0.6 % (0.0-1.0); Eosinophils Absolute Auto 0.22 K/mm3 (0.02-0.50); Eosinophils Percent Auto 1.5 % (1.0-6.0); Hematocrit 45.3 % (40.0-54.0); Hemoglobin 15.6 g/dL (14.0-18.0); Immature Granulocyte Absolute 0.07 K/mm3 (0.00-0.00); Immature Granulocyte Percent A 0.5 % (0.0-0.0); Lymphocytes Absolute Auto 3.59 K/mm3 (1.10-4.50); Lymphocytes Percent Auto 25.2 % (18.0-42.0); Mean Corpuscular HGB Conc 34.4 g/dL (32-36); Mean Corpuscular Hemoglobin 29.5 pg (27.0-31.0); Mean Corpuscular Volume 85.6 fL (78.0-102.0); Mean Platelet Volume 9.2 fl (8.7-11.0); Monocytes Absolute Auto 1.07 K/mm3 (0.10-0.90); Monocytes Percent Auto 7.5 % (2.0-11.0); Neutrophils Percent Auto 64.7 % (50.0-70.0); Platelet Count Result 366 K/mm3 (150-420); Red Blood Count 5.29 M/mm3 (4.70-6.10); Red Cell Distribution Width 12.3 % (11.6-14.4); White Blood Count 14.2 K/mm3 (4.8-10.8)
== END 2024-05-31 11:20 | disposition home or self-care (01) ==
LOC: CHSLAB 11:20
PROVIDERS: PCP Family Medicine; Visit Provider Family Medicine
DX: R59.0 Localized enlarged lymph nodes (principal); J18.9 Pneumonia, unspecified organism
CPT/HCPCS: 36415; 71046; 85025

== ENCOUNTER 2024-06-10 14:18 | Outpatient (CLI) | payer OTHER, SELFPAY ==
--- NOTE | ~2024-06-10 | XR_ITS ---
EXAMINATION: XR chest 2V Exam Date/Time: 06/10/2024 14:20 CDT HISTORY: ACUTE BRONCHITIS Comparison: 05/31/2024. RESULT: Exam limited by quantum mottle and streak artifact as well as poor penetration in the lateral view. Lines, tubes, and devices: None. Lungs and pleura: Clear. Cardiomediastinal silhouette: Stable. Other: No acute osseous or upper abdominal finding. IMPRESSION: No acute cardiopulmonary process, within the limits of the technical limitations described above. Reviewed, dictated and finalized at location K. IMPRESSION: No acute cardiopulmonary process, within the limits of the technical limitation s described above.
--- NOTE | ~2024-06-10 | XR_ITS ---
3 VIEWS THORACIC SPINE Ordering provider: True Cortez, MITCHELL History: . MID BACK PAIN . Comparison: None. FINDINGS: VERTEBRAL BODIES: Slight loss of anterior height at the level of T12 most likely chronic. Clinical c orrelation advised. Otherwise, Normal height and alignment. No visible fracture or subluxation. Mild levoscoliosis in the upper thoracic area. DISK SPACES: Normal. SOFT TISSUES: Normal. IMPRESSION: No acute osseous abnormality of the thoracic spine. Slight loss of anterior height at the level of T12 most likely chronic. Clinical correlation advised. Reviewed, dictated and finalized at location A. IMPRESSION: No acute osseous abnormality of the thoracic spine. Slight loss of anterior height at the level of T12 most likely chronic. Clinica l correlation advised.
== END 2024-06-10 14:19 | disposition home or self-care (01) ==
PROVIDERS: PCP Physician Assistant; Visit Provider Physician Assistant
DX: J20.9 Acute bronchitis, unspecified (principal); M54.9 Dorsalgia, unspecified
CPT/HCPCS: 71046; 72072

== ENCOUNTER 2024-07-08 11:51 | Outpatient (CLI) | payer OTHER, SELFPAY ==
--- NOTE | ~2024-07-08 | XR_ITS ---
Right Hand Technique: PA, oblique, and lateral views were obtained. Clinical History: Pain Findings: No acute fracture or dislocation is seen. Old, healed fracture of the fifth metacarpal note d. Osseous alignment is anatomic. Joint spaces are preserved. Small linear radiodensity near the base the fifth metacarpal is stable since 2010. Impression: No acute abnormality. Old, healed fracture deformity of the fifth metacarpal. Probable small foreign body near the base of fifth metacarpal, stable since 2010. Reviewed, dictated and finalized at location M. Impression: No acute abnormality. Old, healed fracture deformity of the fifth metacarpal. Probable small foreign body near the base of fifth metacarpal, stable since 1.
== END 2024-07-08 11:52 | disposition home or self-care (01) ==
LOC: CHSIMG 11:53
PROVIDERS: PCP Physician Assistant; Visit Provider Physician Assistant
DX: M79.641 Pain in right hand (principal); Z87.81 Personal history of (healed) traumatic fracture
CPT/HCPCS: 73130

== ENCOUNTER 2024-08-05 07:08 | Outpatient (CLI) | payer OTHER, SELFPAY ==
--- NOTE | ~2024-08-05 | US_ITS ---
EXAMINATION: US soft tissue head and neck DATE: 08/05/2024 07:28 INDICATION: Bilateral neck masses. TECHNIQUE: Multiple grayscale and Doppler ultrasound images of the head and neck were obtained. COMPARISON: None FINDINGS: There is no abnormal mass or lymphadenopathy in the patient's areas of concern in the neck. IMPRESSION: 1. No abnormal mass or lymphadenopathy in the patient's areas of concern in the neck. Reviewed, dictated and finalized at location A. ER MEAT
== END 2024-08-05 07:09 | disposition home or self-care (01) ==
LOC: CHSIMG 07:10
PROVIDERS: PCP Physician Assistant; Visit Provider Physician Assistant
DX: M54.2 Cervicalgia (principal)
CPT/HCPCS: 76536

== ENCOUNTER 2024-08-13 07:04 | Outpatient (CLI) | payer OTHER, SELFPAY ==
[2024-08-13 07:26] LABS: Estimated Glomerular Filt Rate > 60
== END 2024-08-13 07:05 | disposition home or self-care (01) ==
PROVIDERS: PCP Physician Assistant; Visit Provider Physician Assistant
DX: M54.2 Cervicalgia (principal)
CPT/HCPCS: 99199

== ENCOUNTER 2024-08-19 07:15 | Outpatient (CLI) | payer OTHER, SELFPAY ==
--- NOTE | ~2024-08-19 | CT_ITS ---
EXAMINATION: CT soft tissue neck w con DATE: 08/19/2024 07:48 INDICATION: Anterior neck pain and swelling. TECHNIQUE: Computed tomography (CT) of the neck was performed with 75 mL Omnipaque-350 intravenous co ntrast. Automated exposure control and iterative reconstruction technique were employed. The dose-george gth product was 521.36 mGy-cm. COMPARISON: CT neck 09/10/2023, ultrasound 08/05/2024 FINDINGS: There are no pathologically enlarged lymph nodes. The cervical internal carotid arteries ar e normal. The pharynx and larynx are normal. There is an old blowout fracture of floor of left orbit. The mastoid air cells are normal. There is a carious lesion of a left mandibular molar. IMPRESSION: 1. No abnormal neck mass or lymphadenopathy. Reviewed, dictated and finalized at location A. ENGER ATTENDANT
== END 2024-08-19 07:16 | disposition home or self-care (01) ==
LOC: CHSIMG 07:17
PROVIDERS: PCP Physician Assistant; Visit Provider Physician Assistant
DX: M54.2 Cervicalgia (principal)
CPT/HCPCS: 70491; Q9967

== ENCOUNTER 2024-09-16 12:59 | Outpatient (CLI) | payer OTHER, SELFPAY ==
--- NOTE | ~2024-09-16 | XR_ITS ---
EXAMINATION: XR lumbar spine 2-3V DATE: 09/16/2024 13:36 INDICATION: Lumbar radiculopathy. TECHNIQUE: 3 views of lumbar spine were obtained. COMPARISON: Lumbar spine radiograph 06/10/2023 FINDINGS: There is 5 degrees levocurvature of lumbar spine. Vertebral body heights are normal. There is mildly decreased disc height at L3-L4. There is multilevel mild facet joint osteoarthritis. IMPRESSION: 1. Mild lumbar spondylosis. Reviewed, dictated and finalized at location A. RVISOR BRIAR SHOP IMPRESSION: 1. Mild lumbar spondylosis.
== END 2024-09-16 13:00 | disposition home or self-care (01) ==
LOC: CHSIMG 13:02
PROVIDERS: PCP Physician Assistant; Visit Provider Physician Assistant
DX: M54.16 Radiculopathy, lumbar region (principal); M43.06 Spondylolysis, lumbar region
CPT/HCPCS: 72100

== ENCOUNTER 2024-11-25 13:38 | Outpatient (CLI) | payer OTHER, SELFPAY ==
[2024-11-25 14:12] LABS: Amphetamine Screen Urine Negative (Negative); Barbiturate Screen Urine Negative (Negative); Benzodiazepines Screen Urine Negative (Negative); Cannabinoid Screen Urine Negative (Negative); Cocaine Screen Urine Negative (Negative); Methadone Screen Urine Negative (Negative); Opiate Screen Urine Negative (Negative); Phencyclidine Screen Urine Negative (Negative)
== END 2024-11-25 13:39 | disposition home or self-care (01) ==
LOC: CHSLAB 13:41
PROVIDERS: PCP Physician Assistant
DX: Z79.899 Other long term (current) drug therapy (principal)
CPT/HCPCS: 80307

== ENCOUNTER 2025-03-13 00:54 | Emergency (ER) | payer OTHER, SELFPAY ==
[2025-03-13] VITALS (32 sets, daily range): BP systolic 114–126; BP diastolic 67–96; PULSE 75–99; RESP 0–24; TEMP 36.3–36.4; O2SAT 91–100
--- NOTE | 2025-03-13 01:04 | ED.ALCOHOL ---
HPI - Alcohol General Chief Complaint: Alcohol Stated Complaint: alcohol Time Seen by Provider: 03/13/25 01:03 Source: patient and family Mode of arrival: ambulatory Limitations: no limitations History of Present Illness HPI narrative: 34-year-old male with a history of hypertension his girlfriend for -- alcohol intoxication. unsure when the patient started drinking. Unsure as to amount of alcohol he has consumed. Patient smells of alcohol. He is unable to answer questions. MD complaint: alcohol intoxication Chronic alcohol use: No Previous visits for alcohol intoxication: No Recent trauma: No Associated symptoms: nausea and vomiting Treatments prior to arrival: none Related Data Home Medications ?Medication ?Instructions ?Recorded ?Confirmed ?Last Taken ?Type hydrochlorothiazide 12.5 mg tablet 12.5 mg PO DAILY 09/10/23 03/26/24 09/10/23 History metoprolol succinate 25 mg 25 mg PO DAILY 09/10/23 03/26/24 09/10/23 History tablet,extended release 24 hr baclofen 10 mg tablet 30 mg PO HS 03/26/24 03/26/24 Unknown History bupropion HCl 150 mg 24 hr tablet, 150 mg PO DAILY 03/26/24 03/26/24 Unknown History extended release buspirone 10 mg tablet 5 mg PO PRN PRN Anxiety 03/26/24 03/26/24 Unknown History Allergies Allergy/AdvReac Type Severity Reaction Status Date / Time Iodine and Iodide Containing Allergy Seizure Verified 03/26/24 09:54 Produc ketorolac (From Toradol) Allergy Rash Verified 03/26/24 09:54 iohexol (From contrast - CT, AdvReac Abdominal Verified 03/26/24 09:54 X-RAY) Pain Review of Systems Review of Systems: All systems reviewed & are unremarkable except as noted in HPI and below Constitutional: Constitutional: Reports as per HPI and Reports no additional constitutional complaints Eyes: Eyes: Reports as per HPI and Reports no additional eye complaints ENT: Reports system reviewed and no additional complaints, except as documented and Reports as per HPI Cardiovascular: Cardiovascular: Reports as per HPI and Reports no additional cardiovascular complaints Respiratory: Respiratory: Reports as per HPI and Reports no additional respiratory complaints Gastrointestinal: Gastrointestinal: Reports as per HPI, Reports no additional gastrointestinal complaints and Reports abdominal pain Neurologic: Reports system reviewed and no additional complaints, except as documented and Reports confusion [facility] Past Medical History Medical History (Updated 03/13/25 @ 04:42 by Manan Paez MD) No active medical problems Surgical History Surgical History H/O hand surgery Family History Family History Mother Diabetes mellitus Social History Social History Smoking status: Light tobacco smoker Tobacco type: cigarettes Alcohol use details: Says he drinks rarely Substance use type: marijuana Gender identity (if verbalized by the patient): Male Exam Narrative: Vitals stable Const: General: ill appearing Orientation/consciousness: confusion HENMT: Head: normal to inspection Ears: external ears normal Face/Nose/Sinus: Normal external nose present Face and sinus: normal facial exam Mouth: Yes Normal oral and palatal mucosa present Throat: posterior oropharynx normal Eyes: Conjunctivae: conjunctivae normal Pupils: Equal, round and reactive pupils present EOM: EOMs intact bilaterally Neck: Neck: normal visual inspection, no lymphadenopathy and no meningeal signs Chest: Chest palpation & inspection: normal inspection of the chest Resp: Effort & Inspection: normal respiratory effort Auscultation: clear to auscultation bilaterally Cardio: Rate: regular rate Rhythm: regular rhythm GI: GI Palp: Yes Soft to palpation Other: tenderness/rigidity/rebound : General: Yes no CVA tenderness Back/Spine/Pelvis: Back: no CVA tenderness Skin: General skin exam: normal color Rashes: no rashes Wounds: no wounds Neuro: General: moves all extremities Extrem: General: normal to inspection and no clubbing, cyanosis or edema Psych: Attitude: cooperative Course Course Emergency Course: acute alcohol intoxication. Blood alcohol level is noted to be 140. Altered mental status after the 3 hours the patient is awake and oriented. Denies any chest pain or abdominal pain. Will discharge home. Vital Signs Vital signs: Vital Signs Temperature 36.3 C L 03/13/25 00:58 Pulse Rate 89 03/13/25 00:58 Respiratory Rate 18 03/13/25 00:58 Blood Pressure 126/88 03/13/25 00:58 Pulse Oximetry 100 03/13/25 00:58 Oxygen Delivery Room Air 03/13/25 00:58 Temperature 36.4 C L 03/13/25 03:31 Pulse Rate 86 03/13/25 04:16 Respiratory Rate 22 H 03/13/25 04:16 Blood Pressure 115/68 03/13/25 04:16 Pulse Oximetry 96 03/13/25 04:16 Oxygen Delivery Room Air 03/13/25 03:31 MDM - Alcohol MDM Narrative Medical decision making narrative: Acute alcohol intoxication Differential Diagnosis Differential diagnosis: Likely alcohol withdrawal syndrome Medical Records Attestation: I reviewed the patient's medical records. Lab Data Attestation: I reviewed the patient's lab results. 03/13/25 01:33 03/13/25 01:32 Labs: Lab Results 03/13/25 03/13/25 03/13/25 Range/Units 01:29 01:32 01:33 WBC 12.6 H (4.8-10.8) K/mm3 RBC 5.31 (4.70-6.10) M/mm3 Hgb 15.6 (14.0-18.0) g/dL Hct 46.7 (40.0-54.0) % MCV 87.9 (78.0-102.0) fL MCH 29.4 (27.0-31.0) pg MCHC 33.4 (32-36) g/dL RDW 12.9 (11.6-14.4) % Plt Count 360 (150-420) K/mm3 MPV 9.4 (8.7-11.0) fl Immature Gran % (Auto) 0.6 H (0.0-0.0) % Neut % (Auto) 58.3 (50.0-70.0) % Lymph % (Auto) 31.6 (18.0-42.0) % [place] % (Auto) 7.1 (2.0-11.0) % Eos % (Auto) 1.4 (1.0-6.0) % Baso % (Auto) 1.0 (0.0-1.0) % Lymph # (Auto) 3.97 (1.10-4.50) K/mm3 [place] # (Auto) 0.89 (0.10-0.90) K/mm3 Eos # (Auto) 0.18 (0.02-0.50) K/mm3 Baso # (Auto) 0.12 H (0.00-0.10) K/mm3 Abs Immat Gran (auto) 0.08 H (0.00-0.00) K/mm3 Absolute Neuts (auto) 7.33 H (1.70-7.20) K/mm3 Absolute Nucleated RBC 0.00 (0.00-0.00) K/mm3 Nucleated RBC % 0.0 (0-0.0) % Sodium 143 (137-145) mmol/L Potassium 3.7 (3.4-5.0) mmol/L Chloride 107 (98-107) mmol/L Carbon Dioxide 23 (22-30) mmol/L Anion Gap 13 H (4-12) mmol/L BUN 10 (9-20) mg/dL Creatinine 0.97 (0.7-1.3) mg/dL Estim Creat Clear Calc 100 ml/min Estimated GFR > 60 (59 - ) Glucose 106 (65-110) mg/dL Calculated Osmolality 295 (285-295) mOsm/kg Calcium 9.7 (8.4-10.2) mg/dL Magnesium 1.8 (1.6-2.3) mg/dL Total Bilirubin 0.3 (0.2-1.3) mg/dL AST 39 (17-59) U/L ALT 45 (6-50) U/L Alkaline Phosphatase 65 (38-126) U/L Total Creatine Kinase 319 H (55-170) U/L Troponin I < 0.012 (0.000-0.034) ng/mL Total Protein 7.7 (6.3-8.2) g/dL Albumin 4.9 (3.5-5.1) g/dL Lipase 80 (23-300) U/L Salicylates < 1.0 L (2-20) mg/dL Acetaminophen < 10 L (10-30) ug/mL Ethyl Alcohol 149 (<10) mg/dL Influenza A (RT-PCR) Negative (Negative) Influenza B (RT-PCR) Negative (Negative) RSV (RT-PCR) Negative (Negative) SARS-CoV-2 RNA (RT-PCR) Negative (Negative) Discharge Plan Discharge Clinical Impression: Alcoholic intoxication Patient Disposition: Home Condition: Stable Instructions: Antibiotic Form, Alcohol Intoxication (ED) Patient Language: Barbadian Prescriptions: No Action metoprolol succinate 25 mg tablet extended release 24 hr 25 mg PO DAILY hydrochlorothiazide 12.5 mg tablet 12.5 mg PO DAILY baclofen 10 mg tablet 30 mg PO HS buspirone 10 mg tablet 5 mg PO PRN PRN (Reason: Anxiety) bupropion HCl 150 mg tablet extended release 24 hr 150 mg PO DAILY cyclobenzaprine 10 mg tablet 10 mg PO TID PRN (Reason: muscle spasm) Qty: 15 0RF tramadol 50 mg tablet 50 mg PO Q6H PRN (Reason: pain) Qty: 20 0RF Follow-up/Referrals: Diego,MITCHELL Biswas [Primary Care Provider] - Time of Disposition: 04:42
--- NOTE | 2025-03-13 01:18 | ECG_ITS ---
Test Date: 2025-03-13 01:26:32 Measurements Intervals [place] Rate: 82 P: 50 IA: 157 QRS: 42 QRSD: 99 T: 42 QT: 357 QTc: 417 Interpretive Statements SINUS RHYTHM NORMAL ECG No previous ECG available for comparison Electronically Signed On 03-13-2025 06:02:43 CDT by Ellis Marti D.O.
[2025-03-13] MEDS: LACTATED RINGERS 500 ML 999 ML IV CONT (01:32)
[2025-03-13] MEDS: ONDANSETRON INJ 4 MG/2 ML VIAL IV PUSH (01:32)
[2025-03-13 01:37] LABS: Basophils Absolute Auto 0.12 K/mm3 (0.00-0.10); Eosinophils Absolute Auto 0.18 K/mm3 (0.02-0.50); Eosinophils Percent Auto 1.4 % (1.0-6.0); Hematocrit 46.7 % (40.0-54.0); Hemoglobin 15.6 g/dL (14.0-18.0); Immature Granulocyte Absolute 0.08 K/mm3 (0.00-0.00); Immature Granulocyte Percent A 0.6 % (0.0-0.0); Lymphocytes Absolute Auto 3.97 K/mm3 (1.10-4.50); Lymphocytes Percent Auto 31.6 % (18.0-42.0); Mean Corpuscular HGB Conc 33.4 g/dL (32-36); Mean Corpuscular Hemoglobin 29.4 pg (27.0-31.0); Mean Corpuscular Volume 87.9 fL (78.0-102.0); Mean Platelet Volume 9.4 fl (8.7-11.0); Monocytes Absolute Auto 0.89 K/mm3 (0.10-0.90); Monocytes Percent Auto 7.1 % (2.0-11.0); Neutrophils Absolute Auto 7.33 K/mm3 (1.70-7.20); Neutrophils Percent Auto 58.3 % (50.0-70.0); Platelet Count Result 360 K/mm3 (150-420); Red Blood Count 5.31 M/mm3 (4.70-6.10); Red Cell Distribution Width 12.9 % (11.6-14.4); White Blood Count 12.6 K/mm3 (4.8-10.8)
[2025-03-13 01:49] LABS: Lipase 80 U/L (23-300); Magnesium 1.8 mg/dL (1.6-2.3)
[2025-03-13 01:55] LABS: Acetaminophen < 10 ug/mL (10-30); Ethanol 149 mg/dL (<10); Salicylate < 1.0 mg/dL (2-20)
[2025-03-13 01:56] LABS: Anion Gap 13 mmol/L (4-12); Blood Urea Nitrogen 10 mg/dL (9-20); Carbon Dioxide 23 mmol/L (22-30); Chloride 107 mmol/L (98-107); Estimated CRCL calculation 100 ml/min; Estimated Glomerular Filt Rate > 60; Potassium 3.7 mmol/L (3.4-5.0); Sodium 143 mmol/L (137-145)
[2025-03-13 01:57] LABS: Alanine Aminotransferase 45 U/L (6-50); Albumin Level 4.9 g/dL (3.5-5.1); Aspartate Amino Transferase 39 U/L (17-59); Bilirubin,Total 0.3 mg/dL (0.2-1.3); Calcium 9.7 mg/dL (8.4-10.2); Creatine Kinase 319 U/L (55-170); Glucose 106 mg/dL (65-110); Osmolality Calculated 295 mOsm/kg (285-295); Total Protein 7.7 g/dL (6.3-8.2)
[2025-03-13 01:58] LABS: Alkaline Phosphatase 65 U/L (38-126)
[2025-03-13 02:02] LABS: Troponin I < 0.012 ng/mL (0.000-0.034)
[2025-03-13 02:12] LABS: Influenza A QL RT-PCR Negative (Negative); Influenza B QL RT-PCR Negative (Negative); RSV RNA, RT-PCR Negative (Negative); SARS-CoV-2 RNA PCR Negative (Negative)
--- NOTE | 2025-03-13 03:43 | PC.NURSE ---
patient resting on stretcher without distress. patient update provided as we are awaiting urine specimen. sig other at bedside, provided warm blanket to her. call light within reach.
--- NOTE | 2025-03-13 04:38 | PC.NURSE ---
ERP Dr. Paez at patient bedside at this time.
[2025-03-13] MEDS: THIAMINE HCL 200 MG/2 ML VIAL 100 MG IV PUSH (04:51)
== END 2025-03-13 05:05 | disposition home or self-care (01) ==
PROVIDERS: Emergency Provider Internal Medicine Critical Care Medicine; PCP Physician Assistant
DX: F10.129 Alcohol abuse with intoxication, unspecified (principal); Y90.6 Blood alcohol level of 120-199 mg/100 ml; I10 Essential (primary) hypertension; F17.210 Nicotine dependence, cigarettes, uncomplicated; Z20.822 Contact with and (suspected) exposure to COVID-19
CPT/HCPCS: 36415; 80053; 80143; 80179; 82077; 82550; 83690; 83735; 84484; 85025; 87637; 93005; 96374; 96375; 99284; J2405; J3411; J7120

== ENCOUNTER 2025-07-07 19:29 | Emergency (ER) | payer OTHER, SELFPAY ==
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
[2025-07-07 19:31] VITALS: BP 146/99; PULSE 86; RESP 22; TEMP 36.9; O2SAT 97
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
[2025-07-07] MEDS: fentaNYL CITRATE INJ (*CRX) 100 MCG/2 ML VIAL 50 MCG IM (19:39)
[2025-07-07 21:11] VITALS: BP 128/72; PULSE 86; RESP 20; O2SAT 100
== END 2025-07-07 21:11 | disposition home or self-care (01) ==
PROVIDERS: Emergency Provider Emergency Medicine; PCP Physician Assistant
DX: S39.012A Strain of muscle, fascia and tendon of lower back, initial encounter (principal); F17.210 Nicotine dependence, cigarettes, uncomplicated; V43.53XA Car driver injured in collision with pick-up truck in traffic accident, initial encounter
CPT/HCPCS: 72100; 73030; 73502; 96372; 99284; A9270; J3010

== ENCOUNTER 2025-07-09 14:11 | Emergency (ER) | payer OTHER, SELFPAY ==
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
--- NOTE | ~2025-07-09 | CT_ITS ---
EXAMINATION: CT brain wo con COMPARISON: None HISTORY: Vision change/loss TECHNIQUE: Axial images were obtained through the brain without IV contrast. CT scan performed using dose optimization techniques including the following automated exposure control; adjustment of mA and/or kV; use of iterative reconstruction technique. Automatic exposure control was used to reduce radiation dose. Permanent radiation dose record is archived to PACS. FINDINGS: No acute infarct or parenchymal hemorrhage. No abnormal mass or mass effect. No midline shift. No extra-axial fluid collections. No hydrocephalus. . Mastoid air cells unremarkable. Sinuses and orbits unremarkable. No acute fracture. No significant facial or scalp soft tissue swelling evident. No radiopaque foreign body is seen. Impression: 1.No acute intracranial abnormality. Reviewed, dictated and finalized at location P. Impression: 1.No acute intracranial abnormality.
[2025-07-09 14:16] VITALS: BP 133/100; PULSE 124; RESP 18; TEMP 37.3; O2SAT 96
[2025-07-09 14:20] VITALS: PULSE 108
--- NOTE | 2025-07-09 14:23 | ECG_ITS ---
Test Date: 2025-07-09 14:28:59 Measurements Intervals [place] Rate: 97 P: 70 AR: 159 QRS: 46 QRSD: 86 T: 14 QT: 309 QTc: 394 Interpretive Statements SINUS RHYTHM BORDERLINE ST-T WAVE ABNORMALITY- INFERIOR LEADS BORDERLINE ECG Compared to ECG 03/13/2025 01:26:32 T-wave abnormality now present Electronically Signed On 07-09-2025 14:40:40 CDT by Ellis Marti D.O.
--- NOTE | 2025-07-09 14:32 | ED.NEUROSD ---
HPI - Neuro Symptoms/Deficit General Chief Complaint: Neuro Symptoms/Deficit Stated Complaint: blurry vision Time Seen by Provider: 07/09/25 14:16 Source: patient Mode of arrival: ambulatory Limitations: no limitations History of Present Illness HPI Narrative: Patient is a 34-year-old male with a left eye vision loss briefly and chest pain with tachycardia event prior to arrival. Patient has known multiple sclerosis. Symptoms resolved by the time of emergency room visit. Patient is on autoimmune injections. Onset (ago): hour(s) (One) Timing confirmed by: family member Location: speech (Stuttering speech briefly) and other (Left eye) History of same: Yes Severity: mild Quality: other (Brief episode of chest pain and elevated heart rate with anxiety) Relieving factors: time Exacerbating factors: other (Increased stress lately) Context: sudden onset On Anticoagulants: No Associated symptoms: chest pain Treatments Prior to Arrival: none Related Data Home Medications ?Medication ?Instructions ?Recorded ?Confirmed ?Last Taken ?Type hydrochlorothiazide 12.5 mg tablet 12.5 mg PO DAILY 09/10/23 03/26/24 09/10/23 History metoprolol succinate 25 mg 25 mg PO DAILY 09/10/23 03/26/24 09/10/23 History tablet,extended release 24 hr baclofen 10 mg tablet 30 mg PO HS 03/26/24 03/26/24 Unknown History bupropion HCl 150 mg 24 hr tablet, 150 mg PO DAILY 03/26/24 03/26/24 Unknown History extended release buspirone 10 mg tablet 5 mg PO PRN PRN Anxiety 03/26/24 03/26/24 Unknown History Allergies Allergy/AdvReac Type Severity Reaction Status Date / Time Iodine and Iodide Containing Allergy Seizure Verified 07/09/25 14:31 Produc ketorolac (From Toradol) Allergy Rash Verified 07/09/25 14:31 iohexol (From contrast - CT, AdvReac Abdominal Verified 07/09/25 14:31 X-RAY) Pain Review of Systems Review of Systems: All systems reviewed & are unremarkable except as noted in HPI and below Constitutional: Constitutional: Reports no additional constitutional complaints Eyes: Eyes: Reports no additional eye complaints ENT: Reports system reviewed and no additional complaints, except as documented Cardiovascular: Cardiovascular: Reports no additional cardiovascular complaints Respiratory: Respiratory: Reports no additional respiratory complaints Gastrointestinal: Gastrointestinal: Reports no additional gastrointestinal complaints Genitourinary: Genitourinary: Reports no additional male genitourinary complaints Musculoskeletal: Musculoskeletal: Reports no additional musculoskeletal complaints Integumentary/Breasts: Skin/Breast: Reports system reviewed and no additional complaints, except as docu Neurologic: Reports system reviewed and no additional complaints, except as documented Psychiatric: Psychiatric: Reports no additional psychiatric complaints Endocrine: Endocrine: Reports no additional endocrine complaints Hematologic/Lymphatic: Hematologic/Lymphatic: Reports no additional hematologic/lymphatic complaints Allergic/Immunologic: Allergic/Immunologic: Reports no additional allergic/immunologic complaints [facility] Past Medical History Medical History (Updated 07/09/25 @ 16:05 by Raymond Montalvo MD) No active medical problems Surgical History Surgical History H/O hand surgery Family History Family History Mother Diabetes mellitus Social History Social History Smoking status: Light tobacco smoker Tobacco type: cigarettes Alcohol use details: Says he drinks rarely Substance use type: marijuana Gender identity (if verbalized by the patient): Male Exam Const: General: healthy appearing Nutritional Appearance: well nourished Orientation/consciousness: patient oriented x3 HENMT: Head: normal to inspection Ears: external ears normal Face/Nose/Sinus: Normal external nose present Eyes: Conjunctivae: conjunctivae normal Pupils: Equal, round and reactive pupils present EOM: EOMs intact bilaterally Neck: Neck: normal visual inspection Chest: Chest palpation & inspection: normal inspection of the chest Resp: Effort & Inspection: normal respiratory effort and not labored Auscultation: clear to auscultation bilaterally and no crackles Cardio: Rate: regular rate Rhythm: regular rhythm Heart sounds: no murmurs GI: Inspection: non-distended GI Palp: Yes Soft to palpation and No Tenderness to palpation present (GI) Auscultation: normal bowel sounds : General: Yes bladder normal to palpation Back/Spine/Pelvis: Back: no CVA tenderness Skin: General skin exam: normal color Rashes: no rashes Wounds: no wounds Neuro: General: patient oriented x3, moves all extremities, no meningeal signs, no focal motor deficits and CN's II-XI intact bilaterally Other: Fast exam is negative, NIH score 0, GCS is 15 Extrem: General: normal to inspection, no clubbing, cyanosis or edema and no pedal edema Psych: Mental Status: mental status grossly normal Affect: normal affect Attitude: cooperative Course Vital Signs Vital signs: Vital Signs Temperature 37.3 C 07/09/25 14:16 Pulse Rate 124 H 07/09/25 14:16 Respiratory Rate 18 07/09/25 14:16 Blood Pressure 133/100 H 07/09/25 14:16 Pulse Oximetry 96 07/09/25 14:16 Oxygen Delivery Room Air 07/09/25 14:16 Temperature 37.3 C 07/09/25 14:16 Pulse Rate 92 07/09/25 14:47 Respiratory Rate 18 07/09/25 14:47 Blood Pressure 137/93 H 07/09/25 14:47 Pulse Oximetry 99 07/09/25 14:47 Oxygen Delivery Room Air 07/09/25 14:16 MDM - Neuro Symptoms/Deficit MDM Narrative Medical decision making narrative: Patient is a 34-year-old male with MS having left eye vision change as well as chest pain and speech change briefly today. We will do a workup at this time. It appears to be an MS flare. Lab Data Attestation: I reviewed the patient's lab results. 07/09/25 15:19 07/09/25 15:19 Labs: Lab Results 07/09/25 Range/Units 15:19 WBC 10.9 H (4.8-10.8) K/mm3 RBC 4.75 (4.70-6.10) M/mm3 Hgb 14.1 (14.0-18.0) g/dL Hct 42.1 (40.0-54.0) % MCV 88.6 (78.0-102.0) fL MCH 29.7 (27.0-31.0) pg MCHC 33.5 (32-36) g/dL RDW 12.9 (11.6-14.4) % Plt Count 306 (150-420) K/mm3 MPV 9.5 (8.7-11.0) fl Immature Gran % (Auto) 0.4 H (0.0-0.0) % Neut % (Auto) 66.9 (50.0-70.0) % Lymph % (Auto) 24.2 (18.0-42.0) % [place] % (Auto) 7.2 (2.0-11.0) % Eos % (Auto) 0.6 L (1.0-6.0) % Baso % (Auto) 0.7 (0.0-1.0) % Lymph # (Auto) 2.64 (1.10-4.50) K/mm3 [place] # (Auto) 0.79 (0.10-0.90) K/mm3 Eos # (Auto) 0.07 (0.02-0.50) K/mm3 Baso # (Auto) 0.08 (0.00-0.10) K/mm3 Abs Immat Gran (auto) 0.04 H (0.00-0.00) K/mm3 Absolute Neuts (auto) 7.28 H (1.70-7.20) K/mm3 Absolute Nucleated RBC 0.00 (0.00-0.00) K/mm3 Nucleated RBC % 0.0 (0-0.0) % Sodium 142 (137-145) mmol/L Potassium 4.1 (3.4-5.0) mmol/L Chloride 105 (98-107) mmol/L Carbon Dioxide 30 (22-30) mmol/L Anion Gap 7 (4-12) mmol/L BUN 12 (9-20) mg/dL Creatinine 0.94 (0.7-1.3) mg/dL Estim Creat Clear Calc 92 ml/min Estimated GFR > 60 (59 - ) Glucose 92 (65-110) mg/dL Calculated Osmolality 293 (285-295) mOsm/kg Calcium 9.6 (8.4-10.2) mg/dL Total Bilirubin 0.5 (0.2-1.3) mg/dL AST 37 (17-59) U/L ALT 39 (6-50) U/L Alkaline Phosphatase 62 (38-126) U/L Troponin I < 0.012 (0.000-0.034) ng/mL C-Reactive Protein < 0.5 (<1.0) mg/dL Total Protein 9.1 H (6.3-8.2) g/dL Albumin 4.6 (3.5-5.1) g/dL Imaging Data Attestation: I personally reviewed and interpreted this imaging study as follows: Radiologist's impression: Chest x-rays negative for acute process CT scan of the head is negative for acute process Discharge Plan Discharge Clinical Impression: Multiple sclerosis with acute neurologic event Patient Disposition: Home Condition: Stable Instructions: Multiple Sclerosis (DC) Additional Instructions: Please follow-up with your primary doctor in the next week. Further workup with your neurologist and discussion with your neurologist as needed based on today's symptoms. 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 Patient Language: Mauritian Prescriptions: New methylprednisolone [Medrol (Quique)] 4 mg tablets,dose pack See Rx Instructions .ROUTE .COMPLEX Qty: 21 0RF Rx Instructions: orally per package directions No Action metoprolol succinate 25 mg tablet extended release 24 hr 25 mg PO DAILY hydrochlorothiazide 12.5 mg tablet 12.5 mg PO DAILY baclofen 10 mg tablet 30 mg PO HS buspirone 10 mg tablet 5 mg PO PRN PRN (Reason: Anxiety) bupropion HCl 150 mg tablet extended release 24 hr 150 mg PO DAILY cyclobenzaprine 10 mg tablet 10 mg PO TID PRN (Reason: muscle spasm) Qty: 15 0RF tramadol 50 mg tablet 50 mg PO Q6H PRN (Reason: pain) Qty: 20 0RF prednisone 10 mg tablet See Taper PO DAILY 15 Days Qty: 45 0RF Taper: Prednisone Taper from 50 mg;15 days 50 mg DAILY for 3 Days and 0 Hour 40 mg DAILY for 3 Days and 0 Hour 30 mg DAILY for 3 Days and 0 Hour 20 mg DAILY for 3 Days and 0 Hour 10 mg DAILY for 3 Days and 0 Hour methocarbamol 750 mg tablet 750 mg PO TID Qty: 30 0RF Follow-up/Referrals: Diego,MITCHELL Biswas [Primary Care Provider] Time of Disposition: 16:10
[2025-07-09 14:47] VITALS: BP 137/93; PULSE 92; RESP 18; O2SAT 99
[2025-07-09 15:25] LABS: Hematocrit 42.1 % (40.0-54.0); Hemoglobin 14.1 g/dL (14.0-18.0); Immature Granulocyte Percent A 0.4 % (0.0-0.0); Lymphocytes Absolute Auto 2.64 K/mm3 (1.10-4.50); Mean Corpuscular HGB Conc 33.5 g/dL (32-36); Mean Corpuscular Hemoglobin 29.7 pg (27.0-31.0); Mean Corpuscular Volume 88.6 fL (78.0-102.0); Nucleated Red Blood Cells Absolute Auto 0.00 K/mm3 (0.00-0.00); Nucleated Red Blood Cells Perc 0.0 % (0-0.0); Platelet Count Result 306 K/mm3 (150-420); Red Blood Count 4.75 M/mm3 (4.70-6.10); White Blood Count 10.9 K/mm3 (4.8-10.8)
[2025-07-09 15:40] LABS: Alanine Aminotransferase 39 U/L (6-50); Albumin Level 4.6 g/dL (3.5-5.1); Alkaline Phosphatase 62 U/L (38-126); Anion Gap 7 mmol/L (4-12); Aspartate Amino Transferase 37 U/L (17-59); Bilirubin,Total 0.5 mg/dL (0.2-1.3); Blood Urea Nitrogen 12 mg/dL (9-20); CRP < 0.5 mg/dL (<1.0); Calcium 9.6 mg/dL (8.4-10.2); Carbon Dioxide 30 mmol/L (22-30); Chloride 105 mmol/L (98-107); Estimated CRCL calculation 92 ml/min; Estimated Glomerular Filt Rate > 60; Glucose 92 mg/dL (65-110); Osmolality Calculated 293 mOsm/kg (285-295); Potassium 4.1 mmol/L (3.4-5.0); Sodium 142 mmol/L (137-145); Total Protein 9.1 g/dL (6.3-8.2)
[2025-07-09 15:49] LABS: Troponin I < 0.012 ng/mL (0.000-0.034)
[2025-07-09 16:14] VITALS: BP 136/85; PULSE 75; RESP 20; TEMP 36.6; O2SAT 100
== END 2025-07-09 16:14 | disposition home or self-care (01) ==
PROVIDERS: Emergency Provider Emergency Medicine; PCP Physician Assistant
DX: G35.D Multiple sclerosis, unspecified (principal); F17.210 Nicotine dependence, cigarettes, uncomplicated
CPT/HCPCS: 36415; 70450; 71046; 80053; 84484; 85025; 86140; 93005; 99284